=== PATIENT | female | born 1995 | race Caucasian/White ===

== ENCOUNTER 2020-08-18 08:40 | Inpatient (IN) | payer OTHER ==
[2020-08-18 11:19] LABS: BASO % 0.3 % (0-2.0); EOS % 0.7 % (0-4.5); HEMATOCRIT 39.6 % (32.4-45.2); HEMOGLOBIN 13.7 GM/dL (10.7-15.3); LYMPH % 17.8 % (8-40); MCH 28.9 pg (25.7-33.7); MCHC 34.5 g/dl (32.0-36.0); MEAN CELL VOLUME 83.8 fl (80-96); MEAN PLT VOLUME 8.5 fl (7.5-11.1); MONO % 6.7 % (3.8-10.2); NEUT % 74.5 % (42.8-82.8); PLATELET COUNT 254 K/MM3 (134-434); RBC 4.73 M/mm3 (3.60-5.2); RDW 14.2 % (11.6-15.6); WHITE BLOOD COUNT 10.8 K/mm3 (4.0-10.0)
[2020-08-18 11:25] LABS: INR 0.93 (0.83-1.09); PROTHROMBIN TIME (PATIENT) 11.5 SEC (9.7-13.0)
[2020-08-18 11:28] LABS: ACTIVATED PTT 26.1 SECONDS (25.2-36.5)
[2020-08-18 11:33] VITALS: BMI 21.9
[2020-08-18 11:49] LABS: CALCIUM 9.6 mg/dL (8.5-10.1); POTASSIUM 3.8 mmol/L (3.5-5.1)
[2020-08-18 11:53] LABS: CREATININE 0.6 mg/dL (0.55-1.3)
[2020-08-18 13:26] LABS: HIV INTERPRETATION NEGATIVE (NEGATIVE)
[2020-08-18] MEDS ORDERED: BUTORPHANOL TARTRATE 2 MG/ML VIAL IVPUSH ONE (18:17)
[2020-08-18] MEDS ORDERED: DINOPROSTONE 10 MG VAGINAL SUPPOSITORY VG ONE (18:17)
[2020-08-18] MEDS ORDERED: PROMETHAZINE HCL 25 MG/1 ML VIAL IVPUSH ONE (18:18)
[2020-08-18] MEDS: DEXTROSE 5%-LACTATED RINGERS 1,000 ML IV SCH (19:30)
[2020-08-18] MEDS ORDERED: PROMETHAZINE HCL 25 MG/1 ML VIAL ONE (23:40)
[2020-08-18] MEDS ORDERED: BUTORPHANOL TARTRATE 1 MG/ML VIAL ONE ×2 (23:40)
[2020-08-19] MEDS ORDERED: BUTORPHANOL TARTRATE 2 MG/ML VIAL IVPB ONE (07:50)
[2020-08-19] MEDS ORDERED: PROMETHAZINE HCL 25 MG/1 ML VIAL IVPB ONE (07:50)
[2020-08-19] MEDS ORDERED: PROMETHAZINE HCL 25 MG/1 ML VIAL ONE (08:53)
[2020-08-19] MEDS ORDERED: BUTORPHANOL TARTRATE 2 MG/ML VIAL ONE (08:53)
[2020-08-19] MEDS ORDERED: morphine SULFATE/Preservative Free 0.5 MG/ML (1cc Syringe) ONE (13:50)
[2020-08-19] MEDS ORDERED: BENZOCAINE 20% 57 GM BOTTLE TP PRN (14:05)
[2020-08-19] MEDS ORDERED: METHYLERGONOVINE MALEATE 0.2 MG/1 ML AMP IM PRN (14:05)
[2020-08-19] MEDS ORDERED: diphenhydrAMINE HCL 25 MG CAPSULE (FP) PO PRN (14:05)
[2020-08-19] MEDS ORDERED: IBUPROFEN 800 MG/8 ML IJ IVPB PRN (14:05)
[2020-08-19] MEDS ORDERED: WITCH HAZEL 50% (TUCKS) 40 PAD/JAR PAD TP PRN (14:05)
[2020-08-19] MEDS ORDERED: oxyCODONE HCL 5 MG TABLET PO PRN ×2 (14:05)
[2020-08-19] MEDS ORDERED: BENZOCAINE 28 GM HEMORRHOIDAL OINTMENT RC PRN (14:05)
[2020-08-19] MEDS ORDERED: DEXTROSE 5%-LACTATED RINGERS 1,000 ML IV SCH (14:15)
[2020-08-19] MEDS ORDERED: OXYTOCIN 20 UNITS in 0.9% NS 20 UNIT/1,000 ML INFUS.BAG IV SCH (14:15)
[2020-08-19] MEDS ORDERED: KETOROLAC TROMETHAMINE 30 MG/1 ML VIAL ONE (14:28)
[2020-08-19] MEDS ORDERED: ONDANSETRON 4 MG/2 ML VIAL ONE (14:28)
[2020-08-19] MEDS ORDERED: ceFAZolin SODIUM 1 GM VIAL ONE (14:28)
[2020-08-19] MEDS ORDERED: OXYTOCIN 10 UNITS/ML VIAL ONE (14:28)
[2020-08-19] MEDS ORDERED: CITRIC ACID/SODIUM CITRATE 30 ML UNIT-DOSE CUP PO ONE (15:18)
[2020-08-19] MEDS ORDERED: ELECTROLYTE-148 SOLN 500 ML IV ONE (15:19)
[2020-08-19] MEDS ORDERED: OXYTOCIN 20 UNITS in 0.9% NS 20 UNIT/1,000 ML INFUS.BAG IV ONE (16:32)
[2020-08-19] MEDS: CEFAZOLIN 1 GM/D5W 1 GM/50 ML BAG IVPB SCH (18:46)
[2020-08-20] MEDS: CEFAZOLIN 1 GM/D5W 1 GM/50 ML BAG IVPB SCH (02:11)
[2020-08-20] MEDS: DEXTROSE 5%-LACTATED RINGERS 1,000 ML IV SCH ×2 (03:08→21:38)
[2020-08-20 08:51] LABS: BASO % 0.6 % (0-2.0); EOS % 0.2 % (0-4.5); HEMATOCRIT 26.6 % (32.4-45.2); HEMOGLOBIN 9.2 GM/dL (10.7-15.3); LYMPH % 9.7 % (8-40); MCHC 34.6 g/dl (32.0-36.0); MEAN CELL VOLUME 83.8 fl (80-96); MEAN PLT VOLUME 7.6 fl (7.5-11.1); MONO % 5.8 % (3.8-10.2); NEUT % 83.7 % (42.8-82.8); PLATELET COUNT 202 K/MM3 (134-434); RBC 3.17 M/mm3 (3.60-5.2); RDW 14.2 % (11.6-15.6); WHITE BLOOD COUNT 11.8 K/mm3 (4.0-10.0)
[2020-08-20] MEDS: IBUPROFEN 600 MG TABLET (FP) PO PRN ×2 (13:15→21:39)
[2020-08-20] MEDS ORDERED: BISACODYL 10 MG SUPP.RECT PR PRN (14:05)
[2020-08-20] MEDS: SIMETHICONE 80 MG TAB.CHEW (FP) PO PRN (21:39)
[2020-08-20] MEDS: oxyCODONE HCL 5 MG TABLET PO PRN (23:57)
[2020-08-20] MEDS: ACETAMINOPHEN 325 MG TABLET (FP) PO PRN (23:57)
[2020-08-21] MEDS: ACETAMINOPHEN 325 MG TABLET (FP) PO PRN ×2 (06:31→16:03)
[2020-08-21] MEDS: SIMETHICONE 80 MG TAB.CHEW (FP) PO PRN ×3 (06:32→20:17)
[2020-08-21] MEDS: IBUPROFEN 600 MG TABLET (FP) PO PRN ×2 (06:32→20:17)
[2020-08-21] MEDS: oxyCODONE HCL 5 MG TABLET PO PRN ×3 (10:09→20:16)
[2020-08-21] MEDS ORDERED: SENNOSIDES/DOCUSATE COMBO (SENNA PLUS) TABLET (UD) PO PRN (22:00)
[2020-08-22 08:52] LABS: BASO % 0.4 % (0-2.0); EOS % 1.6 % (0-4.5); HEMATOCRIT 26.1 % (32.4-45.2); HEMOGLOBIN 8.9 GM/dL (10.7-15.3); MCHC 34.3 g/dl (32.0-36.0); MEAN CELL VOLUME 84.5 fl (80-96); MEAN PLT VOLUME 7.3 fl (7.5-11.1); MONO % 5.3 % (3.8-10.2); NEUT % 70.7 % (42.8-82.8); PLATELET COUNT 250 K/MM3 (134-434); RBC 3.09 M/mm3 (3.60-5.2); RDW 13.9 % (11.6-15.6); WHITE BLOOD COUNT 6.7 K/mm3 (4.0-10.0)
[2020-08-22] MEDS: IBUPROFEN 600 MG TABLET (FP) PO PRN (08:57)
[2020-08-22] MEDS: SIMETHICONE 80 MG TAB.CHEW (FP) PO PRN (08:58)
[2020-08-22] MEDS: ACETAMINOPHEN 325 MG TABLET (FP) PO PRN (08:58)
[2020-08-22 10:19] VITALS: BP 117/84; PULSE 109; TEMP 98
== END 2020-08-22 13:50 | disposition home or self-care (01) | DRG 540 ==
LOC: JLDR 08:40 → J3W 08-19 17:30
PROVIDERS: ADMIT Family Medicine; ATTEND Family Medicine
PROC: 3E0P7VZ Introduction of Hormone into Female Reproductive, Via Natural or Artificial Opening (ICD-10-PCS; 2020-08-18)
PROC: 10D00Z1 Extraction of Products of Conception, Low, Open Approach (ICD-10-PCS; principal; 2020-08-19)
DX: O61.8 Other failed induction of labor (principal); O48.0 Post-term pregnancy; Z3A.41 41 weeks gestation of pregnancy; Z37.0 Single live birth
CPT/HCPCS: 36415; 80048; 85025; 85610; 85730; 86780; 86850; 86900; 86901; 87389; 88307-TC